=== PATIENT | female | born 1995 | race Two or more races ===

== ENCOUNTER 2016-11-29 15:25 | Emergency (ER) | payer OTHER ==
--- NOTE | ~2016-11-29 | US134 ---
[facility] A Service of [facility] RADIOLOGY TEXT RESULTS PATIENT: EDER CHRISTOPHER LOCATION: [facility] : [birth year] UNIT #: [id number] AGE: [address]: Liss Reno SEX: F ORDER DR: [id number] [facility]. [place], [place] [address] [id number] E MR#: [id number] Acc #: [id number] NAME: EDER CHRISTOPHER : 1995 SEX: F STUDY DATE/TIME: 11/29/2016 16:49 UNIT: [facility] ROOM: STUDY DESCRIPTION: Transvaginal Attending Physician: Liss Reno P.A.-C. Ordering Physician: Liss Reno P.A.-C. Primary Care Physician: No Primary Care Physician MEDICAL IMAGING REPORT This report is preliminary unless electronic signature is present EXAMINATION Transabdominal and transvaginal pelvic ultrasound. DATE 11/29/2016 HISTORY 21-year-old female with abdominal pain for 1 month. COMPARISON None. TECHNIQUE Transabdominal imaging was performed for generalized visualization of the pelvic structures while the transvaginal imaging was performed for more detailed evaluation of the adnexa. FINDINGS The uterus measures 6.8 x 3.1 x 4.3 cm. Endometrial bilayer thickness measures approximately 2 mm. No focal endometrial or myometrial lesion is identified. The left ovary measures 3.4 x 2.0 x 2.6 cm and the right ovary measures 3.3 x 2.7 x 2.0 cm. Both ovaries demonstrate a few small follicles but no cystic or solid abnormality. Both ovaries demonstrate normal color and spectral Doppler flow. No pelvic free fluid is identified. IMPRESSION 1. Endometrial bilayer is thin, which can be seen in the menstrual phase of the menstrual cycle. This should be correlated clinically. Otherwise, unremarkable appearance of the uterus and endometrium. 2. Normal sonographic appearance of each ovary. Normal flow was documented to each ovary. [facility] A Service of [facility] RADIOLOGY TEXT RESULTS PATIENT: EDER CHRISTOPHER [facility] #: [id number] : [birth year] UNIT #: [id number] AGE: [address]: Liss Reno SEX: F ORDER DR: 3. No pelvic free fluid. Dictated by... Sofia Gonsalves M.D. THIS IS AN ELECTRONICALLY VERIFIED REPORT Sofia Gonsalves M.D. at 11/30/2016 7:11 AM INDIRA/karl TD: 11/29/2016 18:29 JOB #: [id number] MEDICAL IMAGING REPORT Page 1 of 1 COPY
[2016-11-29 16:24] LABS: URINE SOURCE CLEAN CATCH
[2016-11-29 16:29] LABS: BASOPHIL% 0.4 % (0-2.5); DIFF IND NO; EOSINOPHIL# 0.3 X10e3 (0-0.7); EOSINOPHIL% 2.7 % (0.0-7.0); HEMATOCRIT 38.6 % (35.0-45.0); HEMOGLOBIN 12.7 gm/dL (12.0-16.0); LYMPHOCYTE# 3.6 X10e3 (1.0-3.5); LYMPHOCYTE% 34.3 % (17.0-45.0); MEAN CELL VOLUME 75.7 FL (83-96); MEAN CORPUSCULAR HEMOGLOBIN 24.9 PG (28-34); MEAN CORPUSCULAR HGB CONC 32.9 g/dL (30-36); MEAN PLATELET VOLUME 6.6 FL (6.5-11.5); MONOCYTE# 0.9 X10e3 (0-1.0); MONOCYTE% 8.2 % (3.0-12.0); NEUTROPHIL# 5.7 X10e3 (1.5-7.1); NEUTROPHIL% 54.4 % (40-75); PLATELET COUNT 434 X10e3 (140-420); WHITE BLOOD COUNT 10.5 X10e3 (4.0-10.5)
[2016-11-29 16:30] LABS: URINE APPEARANCE CLEAR; URINE BILIRUBIN NEG (NEG); URINE BLOOD 2+ (NEG); URINE COLOR YELLOW; URINE GLUCOSE NEG (NEG); URINE KETONE NEG (NEG); URINE LEUKOCYTE ESTERASE TRACE (NEG); URINE NITRATE NEG (NEG); URINE PROTEIN TRACE (NEG); URINE SPECIFIC GRAVITY 1.029 (1.003-1.035)
[2016-11-29 16:33] LABS: URINE BACTERIA AUWI NEG (NEGATIVE); URINE SQUAMOUS EPITHELIAL CELL FEW /[HPF]
[2016-11-29 16:41] LABS: CULTURE INDICATED? NO
[2016-11-29 16:43] LABS: URINE MUCUS PRESENT
== END 2016-11-29 17:35 | disposition home or self-care (01) ==
LOC: CFTX 15:25 → CED 15:25 → CFTX 16:25
PROVIDERS: Physician Assistant
DX: N93.8 Other specified abnormal uterine and vaginal bleeding (principal)
CPT/HCPCS: 36415; 76830; 81003; 84703; 85025; 99284